=== PATIENT | female | born 1950 | race Caucasian/White ===

== ENCOUNTER 2016-12-05 20:15 | Inpatient (IN) | payer MEDICARE, OTHER ==
[~2016-12-05] VITALS: Ht 165.1 cm; Wt 47.6 kg
--- NOTE | 2016-12-05 20:15 | NUR ---
to bed 3 bib paramedics [place], pt altered per ems report. received pt aaox2 no acute distress noted, resp even and unlabored. pt unable to recall [place] she got to the mall. pt denies any pain or dsicomfort at this time. place pt on cardiac monitoring, continuous pox. er md at bedside to eval pt. will continue to monitor pt closely.
--- NOTE | 2016-12-05 20:20 | NUR ---
urine sample collected and sent to lab.
--- NOTE | 2016-12-05 20:45 | NUR ---
er at bedside talking pt s/o.
[2016-12-05 20:52] LABS: CALCIUM, SERUM 9.6 mg/dL (8.5-10.1); CARBON DIOXIDE 28 mmol/L (21-32); CHLORIDE 101 mmol/L (98-107); CREATININE 1.1 mg/dL (0.6-1.3); GLUCOSE 176 mg/dL (74-106); POTASSIUM 3.9 mmol/L (3.5-5.1); SODIUM SERUM 142 mmol/L (136-145); UREA NITROGEN, BLOOD 17 mg/dL (7-18)
[2016-12-05 20:58] LABS: ALANINE AMINOTRANSFERASE 61 U/L (12-78); ALBUMIN 4.2 g/dL (3.4-5.0); ALKALINE PHOSPHATASE 138 U/L (46-116); ASPARTATE AMINOTRANSFERASE 125 U/L (15-37); BILIRUBIN,DIRECT 0.3 mg/dL (0.0-0.2); BILIRUBIN,TOTAL 0.9 mg/dL (0.2-1.0); TOTAL PROTEIN, SERUM 8.2 g/dL (6.4-8.2)
[2016-12-05 21:00] LABS: TROPONIN I < 0.017 ng/mL (0.00-0.056)
[2016-12-05 22:40] LABS: BASOPHILS % (AUTO) 0.2 % (0.0-2.0); EOSINOPHILS % (AUTO) 0.3 % (0.0-6.0); HEMATOCRIT 44 % (33-45); HEMOGLOBIN 14.5 g/dL (11.5-14.8); LYMPHOCYTES # (AUTO) 1.4 /CMM (0.8-4.8); LYMPHOCYTES % (AUTO) 12.1 % (20.0-44.0); MEAN CORPUSCULAR HEMOGLOBIN 33 PG (26.0-33.0); MEAN CORPUSCULAR HGB CONC 33 g/dl (31.0-36.0); MEAN CORPUSCULAR VOLUME 99 fL (82-100); MONOCYTES # (AUTO) 0.8 /CMM (0.1-1.30); MONOCYTES % (AUTO) 6.7 % (2.0-12.0); NEUTROPHILS # (AUTO) 9.2 /CMM (1.8-8.9); NEUTROPHILS % (AUTO) 80.7 % (43.0-81.0); PLATELET COUNT (AUTO) 261 /CMM (150-450); RDW COEFFICIENT OF VARIATION 14.7 (11.5-15.0); RED BLOOD CELL COUNT(AUTO) 4.43 MIL/uL (4.0-5.2); WHITE BLOOD COUNT (AUTO) 11.3 K/uL (4.3-11.0)
--- NOTE | 2016-12-05 22:50 | NUR ---
pt s/o remains at bedside. pt resting quietly, no acut distress noted, resp even and unlabored. call light within reach.
--- NOTE | 2016-12-05 22:58 | NUR ---
CALLED DR GODFREY, ON THE PHONE WITH DR CASTELLANO.
--- NOTE | 2016-12-05 22:58 | NUR ---
er talking to dr. flores regarding pt admission.
--- NOTE | 2016-12-05 22:59 | NUR ---
MS 314-1
--- NOTE | 2016-12-05 23:00 | NUR ---
UPDATED BED 314-1 TELE.
--- NOTE | 2016-12-05 23:02 | NUR ---
report called to telecommunications project managerelena ng. will transport pt via acls protocol.
[2016-12-06] VITALS: BP 164/90
--- NOTE | 2016-12-06 00:15 | NUR ---
MOLD CHANGER NOTE: RECEIVED PATIENT RESTING IN BED, NO ACUTE DISTRESS NOTED. BREATHING EVEN AND UNLABORED, NO SOB NOTED. IV TO LFA IN PLACE. TELE READING SR 70. ORIENTED PATIENT TO ROOM AND USE OF CALL LIGHT. PATIENT FOR MRI IN MORNING, QUESTIONNAIRE FILED OUT AND SIGNED, FILED IN CHART. BED LOCKED AND IN LOWEST POSITION, CALL LIGHT IN REACH, WILL CONTINUE TO MONITOR.
[2016-12-06] MEDS ORDERED: ZOLPIDEM TARTRATE 5 MG TABLET PO PRN (00:30)
[2016-12-06] MEDS ORDERED: ACETAMINOPHEN 325 MG TABLET PO PRN (00:30)
[2016-12-06] MEDS ORDERED: OLANZAPINE 10 MG VIAL IM ONE ×2 (02:30→02:35)
--- NOTE | 2016-12-06 02:30 | NUR ---
AVIONICS ELECTRICAL ENGINEER NOTE: PATIENT CONFUSED AND AGITATED. PATIENT REMOVED TELE MONITOR AND CHANGED BACK INTO CLOTHES AND INSISTING TO GO HOME. EXPLAINED THAT PATIENT IS IN THE HOSPITAL AND TO HAVE MRI IN MORNING. CONTACTED PATIENT BOYFRIENTereso DOBBS AT [phone] TO TRY TO TALK TO THE PATIENT TO STAY. DILIA AGITATED PATIENT MORE. CALLED DR. GODFREY FOR ORDERS. RECEIVED ORDERED FOR ZYPREXA 5MG IM ONE TIME DOSE. ORDER NOTED AND CARRIED OUT. MEDICATION ADMINISTERED ORDERED TO LEFT DELTOID WITHOUT COMPLICATIONS. WILL CONTINUE TO MONITOR. Addendum: 12/06/16 at 0513 by PAIGE SPICER RN PATIENT REFUSES TO WEAR TELE BOX, EXPLAINED BENEFITS, BUT CONTINUES TO REFUSE. WILL CONTINUE TO MONITOR.
--- NOTE | 2016-12-06 06:30 | NUR ---
CLINICAL STATISTICAL PROGRAMMER NOTE: PATIENT RESTING IN BED, NO ACUTE DISTRESS NOTED. BREATHING EVEN AND UNLABORED, NO SOB NOTED. IV TO LFA IN PLACE. BED LOCKED AND IN LOWEST POSITION, CALL LIGHT IN REACH, WILL ENDORSE TO DAY NURSE TO CONTINUE WITH PLAN OF CARE.
[2016-12-06 06:52] LABS: THYROID STIMULATING HORMONE 6.517 uIU/mL (0.358-3.74)
--- NOTE | 2016-12-06 07:10 | NUR ---
RN NOTE PT IS SITTING COMFORTABLY IN BED, NO SIGNS OF DISTRESS. PT ON RA, NO SOB, SATING 97%. IV ON LFA INTACT AND PATENT. SAFETY MEASURES ARE IN PLACE, CALL LIGHT IS IN REACH. WILL CONTINUE TO MONITOR.
[2016-12-06 07:32] LABS: APPEARANCE,URINE CLEAR (CLEAR); BILIRUBIN,URINE 1+ (NEGATIVE); BLOOD, URINE NEGATIVE Ery/uL (NEGATIVE); COLOR,URINE YELLOW (YELLOW); KETONES,URINE 2+ (NEGATIVE); LEUKOCYTE ESTERASE ,URINE NEGATIVE (NEGATIVE); NITRITE, URINE NEGATIVE (NEGATIVE); PROTEIN,URINE NEGATIVE (NEGATIVE); UGLUCOSE NEGATIVE (NEGATIVE); UROBILINOGEN,URINE 0.2 EU/dL (0.2)
[2016-12-06 07:53] LABS: BACTERIA,URINE Rare /HPF (None Seen); RBC,URINE 0-2 /HPF (0-2)
[2016-12-06 07:54] LABS: SQUAMOUS EPITHELIAL CELL,UR Few /HPF (None Seen)
[2016-12-06 08:00] VITALS: BP 173/95
[2016-12-06 08:50] VITALS: BP 170/90
[2016-12-06] MEDS: METFORMIN 500 MG TABLET PO SCH ×2 (10:28→17:02)
[2016-12-06] MEDS ORDERED: DONEPEZIL 5 MG TABLET PO SCH (10:30)
[2016-12-06] MEDS ORDERED: ASPIRIN EC 81 MG TABLET.DR PO SCH (10:30)
[2016-12-06] MEDS ORDERED: LISINOPRIL (10MG) 10 MG TABLET PO SCH (10:30)
[2016-12-06] MEDS ORDERED: METF500T4 PO (10:33)
[2016-12-06] MEDS ORDERED: DONE5TAB3 PO (10:33)
[2016-12-06] MEDS ORDERED: ASPI-991 PO (10:33)
[2016-12-06] MEDS ORDERED: LISI10TA59 PO (10:33)
[2016-12-06] MEDS ORDERED: ATOR10TA PO (10:33)
[2016-12-06 11:00] VITALS: BP 169/98
[2016-12-06 16:00] VITALS: BP 168/89
--- NOTE | 2016-12-06 18:10 | NUR ---
PT WAS DISCHARGED HOME IN STABLE CONDITION ACCOMPANIED BY HER BOYFRIEND, DILIA. PT WAS EDUCATED ON NEW PRESCRIPTIONS AND TO FOLLOW UP WITH PCP WITHIN 1-2 WEEKS. PT VERBALIZED THAT SHE WOULD MAKE THE APPOINTMENT ON HER OWN. PT SIGNED DISCHARGE INSTRUCTIONS AND BELONGINGS LIST. IV AND ID BAND WERE REMOVED.
[2016-12-06] MEDS ORDERED: ATORVASTATIN 10 MG TABLET PO SCH (22:00)
== END 2016-12-06 18:00 | disposition home or self-care (01) | DRG 69 ==
LOC: ER 20:17 → TELE 23:36
PROVIDERS: ADMIT Internal Medicine; ATTEND Internal Medicine
DX: G45.9 Transient cerebral ischemic attack, unspecified (principal); F03.90 Unspecified dementia, unspecified severity, without behavioral disturbance, psychotic disturbance, mood disturbance, and anxiety; I10 Essential (primary) hypertension; Z87.891 Personal history of nicotine dependence; Y90.9 Presence of alcohol in blood, level not specified; E11.9 Type 2 diabetes mellitus without complications; F10.20 Alcohol dependence, uncomplicated
CPT/HCPCS: 36415; 70450-TC; 70551-TC; 71010-TC; 80048-TC; 80061-TC; 80076-TC; 80305; 81000-TC; 82140-TC; 82962-TC; 84439-TC; 84443-TC; 84484-TC; 85025-TC; 85652-TC; 87081-TC; 93307-TC; 93880-TC; A4606; J3490; Z7610

== ENCOUNTER 2017-03-03 18:06 | Emergency (ER) | payer OTHER ==
[~2017-03-03] VITALS: Ht 162.6 cm; Wt 45.4 kg
[~2017-03-03 18:06] MED LIST: ASPI-991 PO; ATOR10TA PO; DONE5TAB3 PO; LISI10TA59 PO; METF500T4 PO
--- NOTE | 2017-03-03 18:15 | NUR ---
BBRA FROM HOME FOR DIZZINESS AND SHAKINESS, NAD NOTED, VSS, PUT ON HOSPITAL GOWN, AND MONITOR, WAITING FOR MD CANO.
[2017-03-03 18:54] LABS: BASOPHILS # (AUTO) 0.1 /CMM (0.0-0.2); BASOPHILS % (AUTO) 0.6 % (0.0-2.0); EOSINOPHILS # (AUTO) 0.1 /CMM (0.0-0.7); EOSINOPHILS % (AUTO) 0.5 % (0.0-6.0); HEMATOCRIT 49 % (33-45); HEMOGLOBIN 16.1 g/dL (11.5-14.8); LYMPHOCYTES # (AUTO) 1.4 /CMM (0.8-4.8); LYMPHOCYTES % (AUTO) 13.2 % (20.0-44.0); MEAN CORPUSCULAR HEMOGLOBIN 32 PG (26.0-33.0); MEAN CORPUSCULAR HGB CONC 33 g/dl (31.0-36.0); MEAN CORPUSCULAR VOLUME 98 fL (82-100); MONOCYTES # (AUTO) 0.8 /CMM (0.1-1.30); MONOCYTES % (AUTO) 7.3 % (2.0-12.0); NEUTROPHILS # (AUTO) 8.3 /CMM (1.8-8.9); NEUTROPHILS % (AUTO) 78.4 % (43.0-81.0); PLATELET COUNT (AUTO) 288 /CMM (150-450); RDW COEFFICIENT OF VARIATION 13.3 (11.5-15.0); RED BLOOD CELL COUNT(AUTO) 4.98 MIL/uL (4.0-5.2); WHITE BLOOD COUNT (AUTO) 10.7 K/uL (4.3-11.0)
[2017-03-03] MEDS ORDERED: IV NS 0.9% 1,000 ML BAG IV ONE (19:00)
[2017-03-03] MEDS ORDERED: LORAZEPAM INJ 2 MG/ML VIAL IV ONE ×2 (19:00→20:30)
[2017-03-03] MEDS ORDERED: Thiamine 100 MG in IV D5W 50 ML IV SCH (19:00)
[2017-03-03 19:07] LABS: INR 0.92 (0.87-1.13); PROTHROMBIN TIME 9.6 SECS (9.5-12.7)
[2017-03-03 19:12] LABS: TROPONIN I < 0.017 ng/mL (0.00-0.056)
[2017-03-03 19:42] LABS: ALANINE AMINOTRANSFERASE 21 U/L (12-78); ALBUMIN 4.2 g/dL (3.4-5.0); ALKALINE PHOSPHATASE 170 U/L (46-116); ASPARTATE AMINOTRANSFERASE 77 U/L (15-37); BILIRUBIN,DIRECT 0.2 mg/dL (0.0-0.2); BILIRUBIN,TOTAL 0.9 mg/dL (0.2-1.0); CALCIUM, SERUM 10.2 mg/dL (8.5-10.1); CARBON DIOXIDE 30 mmol/L (21-32); CHLORIDE 101 mmol/L (98-107); CREATININE 0.8 mg/dL (0.6-1.3); GLUCOSE 113 mg/dL (74-106); POTASSIUM 4.2 mmol/L (3.5-5.1); SODIUM SERUM 141 mmol/L (136-145); TOTAL PROTEIN, SERUM 8.4 g/dL (6.4-8.2); UREA NITROGEN, BLOOD 18 mg/dL (7-18)
--- NOTE | 2017-03-03 20:39 | NUR ---
URINE SENT TO LAB
[2017-03-03 20:42] LABS: APPEARANCE,URINE Clear (CLEAR); BILIRUBIN,URINE MODERATE (NEGATIVE); BLOOD, URINE Small Ery/uL (NEGATIVE); COLOR,URINE Yellow (YELLOW); KETONES,URINE 15 (NEGATIVE); LEUKOCYTE ESTERASE ,URINE Negative (NEGATIVE); NITRITE, URINE Negative (NEGATIVE); PROTEIN,URINE 100 mg/dl (NEGATIVE); UGLUCOSE Negative (NEGATIVE)
[2017-03-03 21:04] LABS: BACTERIA,URINE Few /HPF (None Seen); MUCUS,URINE Many /LPF (None Seen); SQUAMOUS EPITHELIAL CELL,UR Moderate /HPF (None Seen); URINE AMORPHOUS URATE Moderate /HPF (None Seen); WBC,URINE 2-3/HPF /HPF (0-3)
[2017-03-03 22:01] VITALS: BP 138/79
== END 2017-03-03 22:07 | disposition home or self-care (01) ==
LOC: ER 18:07
DX: F10.239 Alcohol dependence with withdrawal, unspecified (principal); F10.229 Alcohol dependence with intoxication, unspecified; F03.90 Unspecified dementia, unspecified severity, without behavioral disturbance, psychotic disturbance, mood disturbance, and anxiety; Z79.82 Long term (current) use of aspirin
CPT/HCPCS: 36415; 70450; 71010; 80048; 80076; 81001; 82962; 84484; 85025; 85730; 93005; 96374; 96375; 96376; 99285; G0480; J3411; J7030; J7060; 81000-TC

== ENCOUNTER 2020-10-17 18:30 | Emergency (ER) | payer SELFPAY ==
[~2020-10-17] VITALS: Ht 167.6 cm; Wt 54.0 kg
[~2020-10-17 18:30] MED LIST changes: +ASPI-1420 PO; -ASPI-991 PO; -DONE5TAB3 PO; +DONE5TAB7 PO; +LISI10TA30 PO; -LISI10TA59 PO; +METF-440 PO; -METF500T4 PO
--- NOTE | 2020-10-17 18:45 | NUR ---
AAOX3, BIBRA from home c/o HEADACHE, neck pain AND L KNEE PAIN S/P SNYNCOPAL EPISODE AT HOME. RR is even and unlabored with nad noted. Placed on youth nutritional monitor with NSR on the monitor. Skin is warm and dry. Dr Heller at for eval.
--- NOTE | 2020-10-17 19:30 | NUR ---
REC'D REPORT FROM LIN ELLIOTT FOR JENNIFER
--- NOTE | 2020-10-17 21:35 | NUR ---
Patient discharged to home in stable condition. Written and verbal after care instructions given. Patient verbalizes understanding of instruction. pt wheeled out to family
[2020-10-18 00:53] VITALS: BP 111/78
== END 2020-10-17 22:42 | disposition home or self-care (01) ==
LOC: ER 19:00
DX: S80.02XA Contusion of left knee, initial encounter (principal); S09.8XXA Other specified injuries of head, initial encounter; F03.90 Unspecified dementia, unspecified severity, without behavioral disturbance, psychotic disturbance, mood disturbance, and anxiety; Z79.899 Other long term (current) drug therapy; Z79.82 Long term (current) use of aspirin; W19.XXXA Unspecified fall, initial encounter; Y93.89 Activity, other specified; Y92.89 Other specified places as the place of occurrence of the external cause; Y99.8 Other external cause status
CPT/HCPCS: 70450-TC; 73564-TC